=== PATIENT | male | born 1955 | race Caucasian/White ===

== ENCOUNTER → 2018-09-19 | Outpatient (CLI) | payer OTHER | LOC: LABMAIN 18:01 | PROVIDERS: ATTEND Family Medicine | DX: M25.50 Pain in unspecified joint (principal) | CPT/HCPCS: 36415; 84550 ==

== ENCOUNTER → 2018-10-24 | Outpatient (CLI) | payer OTHER ==
--- NOTE | 2018-10-24 13:18 | EST ---
EXERCISE STRESS AGE: 62 SEX: M HT: 69" WT: 244 PROTOCOL: Sameer Stress Test STAGE: II DURATION OF EXERCISE: 5:13 HEART RATE REST: 60 BLOOD PRESSURE REST: 143/95 MAXIMUM HEART RATE ACHIEVED: 140 MAXIMUM BLOOD PRESSURE: 205/79 85% MPHR: 136 100% MPHR: 160 METS: 7.1 INDICATIONS: PVC's CLINICAL INFORMATION: Baseline EKG revealed normal sinus rhythm with isolated PVCs and right bundle branch block pattern with repolarization abnormality. Patient walked for 5 minutes 30 seconds. Maximal heart rate 140 beats per minute. More than 85% of predicted maximal. EKG did not reveal any new ST-segment changes, but because of underlying right bundle and repolarization changes, this comes as an inconclusive stress test. Limited exercise capacity, inconclusive stress test by EKG criteria. No symptoms of angina. No significant arrhythmia was reported. LUIS / YORDANN: [id number] /
== END ==
LOC: RADNMMAIN 08:42
PROVIDERS: ATTEND Family Medicine
DX: I49.3 Ventricular premature depolarization (principal)
CPT/HCPCS: 93017; 93225; 93226

== ENCOUNTER → 2018-11-25 | Outpatient (CLI) | payer OTHER ==
--- NOTE | 2018-11-25 12:35 | ECHOS ---
STRESS ECHOCARDIOGRAM INDICATIONS: Frequent PVCs MEDICATIONS: Naproxen. BASELINE HEART RATE: 60 BASELINE BLOOD PRESSURE: 118/68 MAXIMUM HEART RATE: 148 MAXIMUM BLOOD PRESSURE: 196/89 85% MPHR: 135 100% MPHR: 159 METS: 7.1 MAXIMUM STAGE REACHED: II TOTAL EXERCISE TIME: 6:00 CLINICAL INFORMATION: STRESS DATA: Pretesting physical examination showed a heart rate of 60, pressure is 118/68 mmHg. Baseline EKG showed sinus mechanism. The patient exercised on the treadmill according to Sameer protocol for a total of 6 minutes and achieved 7.1 METS. Max heart rate was 148, which is about 93% of maximum predicted heart rate. Maximum blood pressure was 192/52 mmHg clinically the patient did not have any symptoms of chest pain or discomfort. The EKG did not show any significant ST or T-wave abnormalities concerning for ischemia. ECHOCARDIOGRAM IMAGES: On echocardiogram images from parasternal long axis view, parasternal short axis view apical 4 chamber and apical 2 chamber view were obtained as the baseline images, at the peak of the heart rate, as well as on recovery. The echocardiogram images showed good augmentation in the left ventricular systolic function without any evidence of wall motion abnormalities concerning for ischemia. CONCLUSION: 1. Good exercise tolerance. 2. Normal EKG in response to exercise. 3. Normal echocardiogram in response to exercise. 4. Essentially normal stress echocardiogram. MMODL / IJN: [id number] /
== END | disposition home or self-care (01) ==
LOC: RADNMMAIN 09:06
PROVIDERS: ATTEND Family Medicine
DX: I49.3 Ventricular premature depolarization (principal); Z88.8 Allergy status to other drugs, medicaments and biological substances
CPT/HCPCS: 93351; Q9950

== ENCOUNTER → 2023-12-25 | Outpatient (CLI) | payer OTHER ==
[2023-12-25 16:02] LABS: African American GFR (CKD) >90 (>60 ml/min/1.73 sqM); Blood Urea Nitrogen 13 mg/dL (9-20); Non-African American GFR(CKD) >90 (>60 ml/min/1.73 sqM)
--- NOTE | 2024-01-02 11:50 | CT ---
EXAMINATION TYPE: CT abdomen pelvis w con DATE OF EXAM: 12/25/2023 COMPARISON: NONE HISTORY: 68-year-old male R31.9, lower abdominal and pelvic pain, hematuria, history of umbilical her rafael. TECHNIQUE: Contiguous axial scanning of the abdomen and pelvis following administration of 100 ml Iso angelo 300 IV contrast. Delayed images through the kidneys and coronal/sagittal reconstructions perform ed. CT DLP: 1835.5 mGycm Automated exposure control for dose reduction was used. FINDINGS: The heart is upper limits of normal in size without pericardial effusion. Some strandy areas of atele ctasis or scarring in the lower lungs. No pleural effusion. Tiny hiatal hernia. Liver enlarged at 20.5 cm. There may be mild fatty infiltration. Portal venous system is patent. No b iliary ductal dilatation. A couple prominent kasey hepatic lymph nodes measuring up to 1.1 cm short axis probably reactive/post inflammatory. Gallbladder, adrenal glands, kidneys, spleen, and pancreas within normal limits. No dilated small bowel, free fluid, or free air. No mesenteric or retroperitoneal lymphadenopathy oth erwise seen. Normal appendix. Oral contrast progressed to the proximal sigmoid colon. Mild stool burden. No dillon lonic inflammatory change. There is prior mesh repair at the umbilicus of the persistent small 3.5 x 2.2 cm herniated fat in the subcutaneous layer at the umbilicus. There seems to be some fat stranding.. No clear neck communicat ing with the intra-abdominal space is identified. Mild circumferential bladder wall thickening. Prostate gland enlargement 5.7 cm wide with some hetero geneous nodular enhancing areas. No abnormal fluid collection in the pelvis or pelvic lymphadenopathy . Bones: Mild degenerative change of the hips. Degenerative bony ankylosis right SI joint. Hypertrophic facet arthropathy mid to lower lumbar spine. Disc osteophyte complex at L2-L3 may contribute to a fo enrique moderate to severe spinal canal stenosis. Addition the lower thoracic spine. IMPRESSION: 1. PREVIOUS MESH REPAIR AT THE UMBILICUS. THERE IS SMALL 3.5 X 2.2 CM HERNIATED FAT IN THE SUBCUTANEO US LAYER AT THE UMBILICUS WITH SOME FAT STRANDING HERE. NO CLEAR HERNIA NECK COMMUNICATING WITH THE I NTRA-ABDOMINAL SPACE. POSSIBLE TRAPPED FAT FROM PREVIOUS HERNIA. IF ANY FOCAL PAIN, THERE MAY BE MILD ASSOCIATED INFLAMMATION. 2. MILD CIRCUMFERENTIAL BLADDER WALL THICKENING MAY BE CHRONIC FOR THE PATIENT. CORRELATE TO EXCLUDE CYSTITIS. 3. PROSTATOMEGALY AT 5.7 CM WIDE WITH SOME HETEROGENEOUS ENHANCEMENT, PROBABLY DUE TO BPH. CORRELATE WITH PSA VALUES AND THE NEED FOR ANY FURTHER WORKUP. 4. HEPATOMEGALY AT 20.5 CM. SUSPECT AT LEAST MILD FATTY INFILTRATION.
== END | disposition home or self-care (01) ==
LOC: RADCTMAIN 15:04
PROVIDERS: ATTEND Family Medicine
DX: R31.9 Hematuria, unspecified (principal); N40.0 Benign prostatic hyperplasia without lower urinary tract symptoms; R16.0 Hepatomegaly, not elsewhere classified
CPT/HCPCS: 82565; 84520; 74177; 36415; Q9967

== ENCOUNTER → 2024-04-15 | Outpatient (CLI) | payer OTHER ==
[2024-04-15 07:48] LABS: African American GFR (CKD) >90 (>60 ml/min/1.73 sqM); Blood Urea Nitrogen 12 mg/dL (9-20); Non-African American GFR(CKD) >90 (>60 ml/min/1.73 sqM)
--- NOTE | 2024-04-15 09:36 | CT ---
EXAMINATION TYPE: CT abdomen w con CT DLP: 1190 mGycm, Automated exposure control for dose reduction was used. DATE OF EXAM: 04/15/2024 8:18 AM COMPARISON: CT abdomen pelvis 12/25/2023 CLINICAL INDICATION:Male, 68 years old with history of K92.1 BLOODY STOOL R10.9 AB PAIN; Bloody stool s and elevated liver enzymes TECHNIQUE: Standard CT of the abdomen following the administration of 100 cc of Isovue 300 IV contr ast material and oral contrast. Coronal and sagittal reformats were performed. FINDINGS: LOWER CHEST: Stable subpleural right lower lobe 4 mm pulmonary nodule (series 4 image 9). Stable left lower lobe subpleural nodule measuring 5 mm (series 4, series 13). RCA calcifications. Mild prominen ce of the heart. No pericardial effusion. ABDOMEN LIVER: Diffusely hypoattenuating parenchyma. No focal lesion. Mildly enlarged measuring 19.8 cm in CC dimension. GALLBLADDER AND BILE DUCTS: Unremarkable. PANCREAS: Unremarkable. SPLEEN: Unremarkable. ADRENAL GLANDS: Unremarkable. KIDNEYS AND URETERS: No evidence of hydronephrosis or renal calculus. The kidneys enhance symmetrical ly. Contrast is demonstrated within both collecting systems on the delayed phase. STOMACH AND BOWEL: Stomach and duodenum are unremarkable. Enteric contrast reaches the hepatic flexur e. No focal bowel wall thickening or surrounding inflammatory changes identified. No evidence of velasquez l obstruction. PERITONEUM: No evidence of pneumoperitoneum or free fluid. VASCULATURE: Minimal atherosclerotic calcifications are present throughout the abdominal aorta and it s branches. No evidence of aortic aneurysm. MUSCULOSKELETAL: No acute osseous abnormalities. Degenerative changes of the right SI joint with ante rior bridging. [facility] of the lower thoracic spine. LYMPH NODES: Stable mildly enlarged kasey hepatic lymph nodes measuring up to 1.2 cm short axis. SOFT TISSUE/ABDOMINAL WALL: Unremarkable IMPRESSION: 1. No CT evidence for an acute abdominal process. 2. Hepatomegaly with diffuse fatty infiltration redemonstrated. 3. Stable nonspecific mildly enlarged kasey hepatic lymph nodes. May be reactive. 4. Couple stable bilateral lower lobe pulmonary nodules from prior CT 12/25/2023. In a low-risk patient , no follow-up is recommended. In a high-risk patient patient consider optional CT chest in 12 months . [facility], , 04/15/2024 9:33 AM
== END | disposition home or self-care (01) ==
LOC: RADCTMAIN 07:08
PROVIDERS: ATTEND Family Medicine
CPT/HCPCS: 36415; 74160; 82565; 84520

== ENCOUNTER → 2024-05-15 | Day surgery (SDC) | payer OTHER ==
[~2024-05-15] MED LIST: LIDOCAINE 1% INJ 10MG/ML (20 ML MDV) ONE; PROPOFOL 10 MG/ML 20 ML VIAL IV ONE
[2024-05-15] MEDS: IV FLUID CONTINUATION 1,000 ML IV ONE (06:47)
[2024-05-15 07:10] VITALS: RESP 16; TEMP 97.4
[2024-05-15] MEDS: LACTATED RINGERS 1,000 ML IV SCH (07:11)
--- NOTE | 2024-05-15 07:52 | P.PCN ---
Date of Procedure: 05/15/24 Procedure(s) Performed: Brief history: Patient is a pleasant 68-year-old white male scheduled for an elective upper endoscopy as well as colonoscopy as a part of evaluation of GERD and screening for colon cancer/positive Cologuard Procedure performed: Esophagogastroduodenoscopy with biopsy Colonoscopy with biopsy Preoperative diagnosis: GERD Screening for colon cancer/positive Cologuard Anesthesia: MAC Procedure: After informed consent was obtained from the patient was brought into the endoscopy unit and IV sedation was administered by anesthesia under continuous monitoring. Initially upper endoscopy was done. The Olympus GF 160 video endoscope was inserted inserted into the mouth and esophagus intubated without any difficulty and was gradually advanced into the stomach and duodenum and carefully examined. The bulb and second part of the duodenum appeared normal. The scope was then withdrawn into the stomach adequately insufflated with air and upon careful examination the antrum and mild patchy areas of erythema consistent with gastritis and biopsies were done from this area. Mucosa of the body, cardia and fundus appeared normal. The scope was then withdrawn into the esophagus. The GE junction was located at 45 cm to the incisors. There was a 5 mm polyp at the GE junction that was biopsied. The GE junction appeared regular with no erythema erosions or ulcerations. Rest of the esophagus appeared normal. Patient tolerated the procedure well. At this time the patient continued to remain sedation. Initial digital rectal examination was normal. Olympus CF 160 video colonoscope was then inserted into the rectum and gradually advanced to the cecum without any difficulty. Careful examination was performed as the scope was gradually being withdrawn. The prep was excellent. The cecum, ascending colon, transverse colon, appeared normal. The descending colon there was a 3 mm polyp that was removed by cold biopsy. Rest of the descending colon, sigmoid colon and rectum appeared normal. Retroflexion was performed in the rectum and no lesions were noted. Patient tolerated the procedure well. Impression: 1. Upper endoscopy revealed mild antral gastritis and a 5 mm GE junction polyp status post cold biopsy 2. Colonoscopy revealed 3 mm descending colon polyp status post cold biopsy and the rest of the colon appeared normal Recommendations: Findings of this examination were discussed with the patient as well as his family. He was advised to follow-up with the biopsy results. If the biopsy reveals adenoma he can have repeat colonoscopy in 5 years.
[2024-05-15 08:20] VITALS: BP 167/72; PULSE 74
== END ==
LOC: ORWHC2ENDO 06:21
PROVIDERS: ATTEND Internal Medicine Gastroenterology
DX: K29.50 Unspecified chronic gastritis without bleeding (principal); K22.82 Esophagogastric junction polyp; D12.4 Benign neoplasm of descending colon; K21.9 Gastro-esophageal reflux disease without esophagitis; E78.5 Hyperlipidemia, unspecified; A15.9 Respiratory tuberculosis unspecified; E07.9 Disorder of thyroid, unspecified; G40.89 Other seizures; Z89.522 Acquired absence of left knee; Z90.89 Acquired absence of other organs; Z79.899 Other long term (current) drug therapy
CPT/HCPCS: 88305; 45380; 43239; J2003; J2704

== ENCOUNTER → 2024-06-19 | Outpatient (CLI) | payer OTHER ==
--- NOTE | 2024-06-19 12:35 | NM ---
EXAMINATION TYPE: NM hepatobiliary w EF DATE OF EXAM: 06/19/2024 COMPARISON: Correlation CT 04/15/2024 CLINICAL INDICATION: Male, 68 years old with history of R10.84 abd pain R78.4 ELEVATED LIVER ENZYMES; TECHNIQUE: After the intravenous administration of 5.36 mCi Tc 99m Mebrofenin hepatobiliary scintigra phy is performed. Immediate images post injection. FINDINGS: There is satisfactory initial accumulation of tracer by the liver. However, slight delayed clearance of tracer from the blood pool. The gallbladder is visualized within 24 minutes. The small bowel act ivity is noted within 4 minutes. At one hour 8 ounces of oral ensure plus is given to mimic CCK and gallbladder ejection fraction is calculated at 69 %, in the normal range. IMPRESSION: 1. No scintigraphic evidence for acute/chronic cholecystitis or biliary dyskinesia. 2. Incidentally, we note slight delayed clearance of tracer from the blood pool. Correlate with LFTs to exclude nonspecific hepatocellular dysfunction. [facility], , 06/19/2024 12:33 PM
== END | disposition home or self-care (01) ==
LOC: RADNMMAIN 08:32
PROVIDERS: ATTEND Family Medicine
DX: R10.84 Generalized abdominal pain (principal); R78.4 Finding of other drugs of addictive potential in blood
CPT/HCPCS: 78226; A9537